=== PATIENT | female | born 1955 ===

== ENCOUNTER 2016-10-18 19:25 | Emergency (ER) | payer MEDICAID ==
--- NOTE | 2016-10-18 20:52 | C.PDOC ---
History Of Present Illness 60 year old female who presents to the ER with son for a complaint of subjective fever, nausea, facial pressure, and body aches over the past 3 hours. As per son, patient was asymptomatic until 3 hours ago; denies vomiting, diarrhea, rash, or recent travel. Time Seen by Provider: 10/18/16 19:47 Chief Complaint (Nursing): Flu-like Symptoms History Per: Patient History/Exam Limitations: no limitations Onset/Duration Of Symptoms: Hrs, Sudden Onset Current Symptoms Are (Timing): Still Present Location Of Pain: Diffuse Myalgias Sick Contacts (Context): None Associated Symptoms: Fever (Subjective), Myalgias, Nausea. denies: Vomiting, Diarrhea Ear Symptoms: Bilateral: None Recent travel outside of the [place]: No Past Medical History Reviewed: Historical Data, Nursing Documentation, Vital Signs Vital Signs: Last Vital Signs Temp 98.1 F 10/18/16 20:59 Pulse 63 10/18/16 20:59 Resp 18 10/18/16 20:59 BP 102/61 10/18/16 20:59 Pulse Ox 98 10/18/16 21:33 - Medical History PMH: HTN, Hypercholesterolemia Surgical History: No Surg Hx Family History: States: Unknown Family Hx - Social History Hx Alcohol Use: No Hx Substance Use: No - Immunization History Hx Tetanus Toxoid Vaccination: No Hx Influenza Vaccination: No Hx Pneumococcal Vaccination: No Review Of Systems Except As Marked, All Systems Reviewed And Found Negative. Constitutional: Positive for: Fever Respiratory: Negative for: Cough Gastrointestinal: Positive for: Nausea. Negative for: Vomiting, Diarrhea Musculoskeletal: Positive for: Other (Body aches) Skin: Negative for: Rash Neurological: Negative for: Headache, Dizziness Physical Exam - Physical Exam Appears: Non-toxic, No Acute Distress Skin: Normal Color, Warm, Dry, No Rash Head: Atraumatic, Normacephalic Eye(s): bilateral: Normal Inspection, PERRL, EOMI Ear(s): Bilateral: Normal Oral Mucosa: Moist Throat: No Erythema, No Exudate Neck: Normal ROM, Supple Chest: Symmetrical, No Tenderness Cardiovascular: Rhythm Regular, No Friction Rub, No Murmur Respiratory: Normal Breath Sounds, No Rales, No Rhonchi, No Wheezing Gastrointestinal/Abdominal: Soft, No Tenderness Back: Normal Inspection, No CVA Tenderness, No Vertebral Tenderness, No Paraspinal Tenderness Extremity: Normal ROM, No Tenderness, No Swelling Neurological/Psych: Oriented x3, Normal Speech, Normal Cognition, Normal Motor Gait: Steady ED Course And Treatment O2 Sat by Pulse Oximetry: 98 (Room air) Pulse Ox Interpretation: Normal Medical Decision Making Medical Decision Making: Toradol and Zofran administered. Physical exam is negative. On reevaluation, patient reports improvement of symptoms, tolerating PO well, ambulatory in the ED with steady gait. Will discharge with instructions to follow up with PMD. Disposition - Disposition Referrals: Jaime Bedoya MD [Medical Doctor] - Disposition: HOME/ ROUTINE Disposition Time: 20:49 Condition: GOOD Additional Instructions: Follow up with the medical doctor within 1-2 days. Return if worsened. Prescriptions: Ibuprofen [Motrin] 600 mg PO TID #21 tab Ondansetron ODT [Zofran ODT] 1 odt PO BID PRN #10 odt PRN Reason: Nausea/Vomiting Instructions: Viral Syndrome (ED) Forms: [facility] (Upper Sorbian) Print Language: LAO - Clinical Impression Clinical Impression: Viral syndrome - Scribe Statement The provider has reviewed the documentation as recorded by the Scriballi Hoyt All medical record entries made by the Scribe were at my direction and personally dictated by me. I have reviewed the chart and agree that the record accurately reflects my personal performance of the history, physical exam, medical decision making, and the department course for this patient. I have also personally directed, reviewed, and agree with the discharge instructions and disposition.
[2016-10-18 20:59] VITALS: BP 102/61; PULSE 63; RESP 18; TEMP 98.1
[2016-10-18 21:23] VITALS: O2SAT 98
== END 2016-10-18 20:59 | disposition home or self-care (01) ==
LOC: C.ER 19:25
DX: B34.9 Viral infection, unspecified (principal)
CPT/HCPCS: 96372; 99283; J1885

== ENCOUNTER 2017-03-22 22:25 | Observation (INO) | payer MEDICAID ==
--- NOTE | 2017-03-22 22:46 | C.PDOC ---
History Of Present Illness 61 y/o F c PMHx HTN, HLD p/w dizziness x 30 minutes. Patient has had this dizziness before but never this severe. Describes as room spinning, worse with head movement, associated with nausea and NBNB vomiting. She reports associated midchest chest pressure, constant with breathlessness. Denies fever, chills, abd pain, diarrhea, numbness, weakness, vision changes. Time Seen by Provider: 03/22/17 22:39 Chief Complaint (Nursing): Chest Pain Past Medical History Vital Signs: Last Vital Signs Temp 98.2 F 03/23/17 00:12 Pulse 57 L 03/22/17 22:58 Resp 54 H 03/23/17 00:12 BP 122/71 03/23/17 00:12 Pulse Ox 20 L 03/23/17 00:12 - Medical History PMH: HTN, Hypercholesterolemia Family History: States: No Known Family Hx - Social History Hx Alcohol Use: No Hx Substance Use: No - Immunization History Hx Tetanus Toxoid Vaccination: No Hx Influenza Vaccination: No Hx Pneumococcal Vaccination: No Review Of Systems Except As Marked, All Systems Reviewed And Found Negative. Constitutional: Negative for: Fever Respiratory: Negative for: Shortness of Breath Physical Exam - Physical Exam Additional Physical Exam Comments: Constitutional: No acute distress. Head: Normocephalic. Atraumatic. Eyes: PERRL. ENT: Moist mucous membranes. Neck: Supple. Cardiovascular: Regular rate. Radial pulse 2+ bilaterally. Chest: No tenderness. Respiratory: Clear to auscultation bilaterally. GI: Soft. Nontender. Nondistended. Back: No CVA tenderness. Musculoskeletal: No tenderness or swelling of extremities. Skin: No rash. Neurologic: Alert, no focal deficit. Positive Alyssa Hallpike maneuver.Moves all extremities. No facial droop. ED Course And Treatment - Laboratory Results Result Diagrams: 03/22/17 22:49 03/22/17 22:49 O2 Sat by Pulse Oximetry: 100 Medical Decision Making Medical Decision Making: EKG Sinus rhythm, 60 bpm, no ST elevations. Nonspecific T wave changes. CXR no acute disease. CT HEAD IMPRESSION: No acute intracranial abnormality Patient with no improvement in vertiginous symptoms. Will keep for intractible vertigo, chest pain rule out. Disposition Discussed With : Artem Hi - Disposition Disposition: HOSPITALIZED Disposition Time: 00:46 Condition: FAIR Forms: [facility] (Syriac) - POA Core Measure Indicators: Chest Pain - Clinical Impression Clinical Impression: Chest pain, Vertigo
[2017-03-22 22:53] LABS: BASO % 0.2 % (0.0-2.0); EOS # 0.2 K/uL (0.0-0.7); EOS % 1.6 % (0.0-4.0); HEMOGLOBIN 13.8 g/dL (11.0-16.0); LYMPH # 1.8 K/uL (1.0-4.3); LYMPH % 15.6 % (20.0-40.0); MEAN CELL VOLUME 88.6 fL (81.0-99.0); MEAN CORPUSCULAR HEMOGLOBIN 30.5 pg (27.0-31.0); MEAN CORPUSCULAR HGB CONC 34.4 g/dL (33.0-37.0); MONO # 0.6 K/uL (0.0-0.8); NEUT % 77.6 % (50.0-75.0); NRBC % 0.1 % (0.0-2.0); RBC 4.53 Mil/uL (3.80-5.20); RED CELL DISTRIBUTION WIDTH 13.6 % (11.5-14.5); WHITE BLOOD COUNT 11.6 K/uL (4.8-10.8)
[2017-03-22 23:05] LABS: ALB/GLOB RATIO 1.2 (1.0-2.1); ALBUMIN 4.1 g/dL (3.5-5.0); ALT/SGPT 33 U/L (9-52); AST/SGOT 30 U/L (14-36); BLOOD UREA NITROGEN 15 mg/dL (7-17); CALCIUM 8.1 mg/dl (8.6-10.4); GFR AFRICAN-AMERICAN > 60; GFR NON-AFRICAN AMERICAN > 60
--- NOTE | 2017-03-23 00:29 | CT ---
EXAM: CT Head Without Intravenous Contrast EXAM DATE/TIME: 03/22/2017 11:33 PM CLINICAL HISTORY: 61 years old, female; Signs and symptoms; Dizziness; Additional info: Intractible vertigo TECHNIQUE: Axial computed tomography images of the head/brain without intravenous contrast. All CT scans at this facility use one or more dose reduction techniques, viz.: automated exposure control; ma/kV adjustment per patient size (including targeted exams where dose is matched to indication; i.e. head); or iterative reconstruction technique. Coronal and sagittal reformatted images were created and reviewed. COMPARISON: There are no prior studies for comparison. FINDINGS: Brain: Ventricles are normal in size and configuration. There is no midline shift. There are no intra-axial or extra-axial mass lesions or areas of hemorrhage. There are no abnormal fluid collections. Martell-white differentiation is maintained. Ventricles: See above. Bones: Cranial vault is intact. Soft tissues: unremarkable Sinuses: There is no acute sinusitis. Ears and mastoids: Middle ears and mastoids are unremarkable Orbits: Orbital contents are unremarkable. IMPRESSION: No acute intracranial abnormality
--- NOTE | 2017-03-23 02:33 | CP.PCM.HP ---
<Eugene Gonsalves - Last Filed: 03/23/17 02:39> History of Present Illness - History of Present Illness History of Present Illness: PGY-1 H&P for Dr. Hi CC: dizziness and chest pain This is a 61 year old female with PMHx HTN, HLD, IGT who presents complaining of non-radiating mid sternal chest pain and dizziness for half an hour prior to arrival to the hospital. Patient states that the pain is constant and described as a pressure. The dizziness is worsened with turning her head. Dizziness is described as the room is spinning. Patient also complains of nausea and vomiting. PMHx: HTN, HLD, IGT PSHx: denies Allergies: PCN Social: denies tobacco, alcohol,drugs PMD: Dr. Bedoya Home meds: Valsartan 80 daily, Metoprolol 50 BID Present on Admission - Present on Admission Any Indicators Present on Admission: No Review of Systems - Constitutional Constitutional: absent: Chills, Fever - EENT Eyes: absent: Change in Vision Ears: absent: Decreased Hearing Nose/Mouth/Throat: absent: Nasal Congestion - Cardiovascular Cardiovascular: Chest Pain - Respiratory Respiratory: absent: Cough, Dyspnea, Wheezing - Gastrointestinal Gastrointestinal: Nausea, Vomiting. absent: Abdominal Pain, Constipation, Diarrhea - Genitourinary Genitourinary: absent: Dysuria - Musculoskeletal Musculoskeletal: absent: Back Pain - Integumentary Integumentary: absent: Rash - Neurological Neurological: Dizziness, Vertigo - Psychiatric Psychiatric: Anxiety - Endocrine Endocrine: absent: Fatigue, Palpitations Past Patient History - Past Social History Smoking Status: Never Smoked - CARDIAC Hx Hypercholesterolemia: Yes Hx Hypertension: Yes - PSYCHIATRIC Hx Substance Use: No - SURGICAL HISTORY Hx Surgeries: No - ANESTHESIA Hx Anesthesia: No Meds Allergies/Adverse Reactions: Allergies Allergy/AdvReac Type Severity Reaction Status Date / Time Penicillins Allergy RASH Verified 10/18/16 19:36 Results - Vital Signs Recent Vital Signs: Last Vital Signs Temp 97.2 F L 03/23/17 02:06 Pulse 62 03/23/17 02:06 Resp 20 03/23/17 02:06 BP 95/63 L 03/23/17 02:06 Pulse Ox 97 03/23/17 02:06 - Labs Result Diagrams: 03/22/17 22:49 03/22/17 22:49 Labs: Laboratory Results - last 24 hr 03/22/17 03/22/17 22:49 22:49 WBC 11.6 H D RBC 4.53 Hgb 13.8 Hct 40.1 MCV 88.6 MCH 30.5 MCHC 34.4 RDW 13.6 Plt Count 209 MPV 9.0 Neut % (Auto) 77.6 H Lymph % (Auto) 15.6 L Doddridge % (Auto) 5.0 Eos % (Auto) 1.6 Baso % (Auto) 0.2 Neut # 9.0 H Lymph # 1.8 Doddridge # 0.6 Eos # 0.2 Baso # 0.0 Sodium 130 L Potassium 3.7 Chloride 96 L Carbon Dioxide 27 Anion Gap 10 BUN 15 Creatinine 0.7 Est GFR ( Amer) > 60 Est GFR (Non-Af Amer) > 60 Random Glucose 132 H Calcium 8.1 L Total Bilirubin 0.6 AST 30 ALT 33 Alkaline Phosphatase 100 Total Creatine Kinase 158 H CK-MB (Mass) 1.80 Troponin I < 0.0120 Total Protein 7.7 Albumin 4.1 Globulin 3.6 Albumin/Globulin Ratio 1.2 Assessment & Plan - Assessment and Plan (Free Text) Plan: Chest pain CARMENZA negative x1 f/u CARMENZA x2 Dizziness likely BPPV Meclizine [address] head unremarkable f/u MRI brain w.o. contrast History of HTN Valsartan NF--Losartan 50 mg PO daily continued home Metoprolol Succinate 50 mg PO BID History of HLD f/u lipid panel History of IGT f/u hemoglobin A1c Prophylactic Measure Heparin 5000U SC Q8 Protonix 40 mg PO daily Heart Healthy diet Zofran 4 mg IV Q6 prn Case DW Dr. Sussy Gonsalves PGY-1 <Artem Hi - Last Filed: 03/23/17 05:32> Results - Vital Signs Recent Vital Signs: Last Vital Signs Temp 99.6 F 03/23/17 02:55 Pulse 56 L 03/23/17 03:40 Resp 20 03/23/17 02:55 BP 148/74 03/23/17 02:55 Pulse Ox 99 03/23/17 03:40 - Labs Result Diagrams: 03/22/17 22:49 03/22/17 22:49 Labs: Laboratory Results - last 24 hr 03/22/17 03/22/17 22:49 22:49 WBC 11.6 H D RBC 4.53 Hgb 13.8 Hct 40.1 MCV 88.6 MCH 30.5 MCHC 34.4 RDW 13.6 Plt Count 209 MPV 9.0 Neut % (Auto) 77.6 H Lymph % (Auto) 15.6 L Doddridge % (Auto) 5.0 Eos % (Auto) 1.6 Baso % (Auto) 0.2 Neut # 9.0 H Lymph # 1.8 Doddridge # 0.6 Eos # 0.2 Baso # 0.0 Sodium 130 L Potassium 3.7 Chloride 96 L Carbon Dioxide 27 Anion Gap 10 BUN 15 Creatinine 0.7 Est GFR ( Amer) > 60 Est GFR (Non-Af Amer) > 60 Random Glucose 132 H Calcium 8.1 L Total Bilirubin 0.6 AST 30 ALT 33 Alkaline Phosphatase 100 Total Creatine Kinase 158 H CK-MB (Mass) 1.80 Troponin I < 0.0120 Total Protein 7.7 Albumin 4.1 Globulin 3.6 Albumin/Globulin Ratio 1.2 Assessment & Plan - Date & Time Date: 03/23/17 (I have seen and examined the patient. I agree with the findings and plan of care as documented by Dr. Gonsalves. Patient with chest pain. ROMIx3 with EKG. Aspirin and Statin. Also with intractable Nausea and vomiting. Dizziness. Meclizine given without any relief. CT head negative. Check MRI brain in AM. Monitor for acute changes.) Time: 05:30 Attending/Attestation - Attestation I have personally seen and examined this patient.: Yes I have fully participated in the care of the patient.: Yes I have reviewed all pertinent clinical information: Yes
[2017-03-23 07:47] LABS: BASO % 0.4 % (0.0-2.0); EOS # 0.2 K/uL (0.0-0.7); EOS % 1.8 % (0.0-4.0); HEMOGLOBIN 13.5 g/dL (11.0-16.0); LYMPH # 2.4 K/uL (1.0-4.3); LYMPH % 27.1 % (20.0-40.0); MEAN CELL VOLUME 88.6 fL (81.0-99.0); MEAN CORPUSCULAR HEMOGLOBIN 30.5 pg (27.0-31.0); MEAN CORPUSCULAR HGB CONC 34.4 g/dL (33.0-37.0); MEAN PLATELET VOLUME 8.9 fL (7.2-11.7); MONO # 0.6 K/uL (0.0-0.8); NEUT # 5.5 K/uL (1.8-7.0); NEUT % 63.7 % (50.0-75.0); NRBC % 0.1 % (0.0-2.0); RBC 4.44 Mil/uL (3.80-5.20); RED CELL DISTRIBUTION WIDTH 13.7 % (11.5-14.5); WHITE BLOOD COUNT 8.7 K/uL (4.8-10.8)
[2017-03-23 08:05] LABS: CK-MB 1.53 ng/mL (0.0-3.38)
[2017-03-23 08:07] LABS: LDL CHOLESTEROL 156 mg/dL (0-129)
[2017-03-23 08:16] LABS: ALB/GLOB RATIO 1.1 (1.0-2.1); ALBUMIN 3.5 g/dL (3.5-5.0); ALT/SGPT 25 U/L (9-52); AST/SGOT 29 U/L (14-36); BLOOD UREA NITROGEN 12 mg/dL (7-17); CALCIUM 7.6 mg/dl (8.6-10.4); GFR AFRICAN-AMERICAN > 60; GFR NON-AFRICAN AMERICAN > 60; HDL CHOLESTEROL 42 mg/dL (30-70)
--- NOTE | 2017-03-23 08:37 | RAD ---
HISTORY: cp COMPARISON: Comparison is made with 10/29/2015 FINDINGS: LUNGS: No evidence of new infiltrate or consolidation in the lungs. PLEURA: No significant pleural effusion identified, no pneumothorax apparent. CARDIOVASCULAR: Normal. OSSEOUS STRUCTURES: No significant abnormalities. VISUALIZED UPPER ABDOMEN: Normal. OTHER FINDINGS: None. IMPRESSION: No active disease.
[2017-03-23] MEDS: Pantoprazole 40 mg EC Tab PO SCH (09:18)
[2017-03-23] MEDS ORDERED: Metoprolol Succinate 50 mg XL Tab PO SCH (10:00)
--- NOTE | 2017-03-23 10:16 | CP.PCM.PN ---
<Ligia Mendiola - Last Filed: 03/23/17 15:54> Subjective - Date & Time of Evaluation Date of Evaluation: 03/23/17 Time of Evaluation: 10:16 - Subjective Subjective: Medicine Progress Note: Hospitalist Service Patient seen and examined at bedside. Per nursing no acute events overnight. Patient states that chest pain has improved. Also states that she feels a little dizzy. Attempted to walk the patient in the hallway and she began to feel dizzy again. Tolerating diet. denies N/V. Denies headaches, cp, palpitations, sob, abdominal pain, urinary symptoms, changes in bowel habits. Objective - Vital Signs/Intake and Output Vital Signs (last 24 hours): Temp Pulse Resp BP Pulse Ox 97.7 F 58 L 20 130/85 99 03/23/17 07:30 03/23/17 07:30 03/23/17 07:30 03/23/17 09:20 03/23/17 03:40 Intake and Output: 03/23/17 03/23/17 06:59 18:59 Intake Total 100 Balance 100 - Medications Medications: Current Medications Aspirin (Aspirin Chewable) 81 mg PO DAILY [facility] Last Admin: 03/23/17 09:19 Dose: 81 mg Heparin Sodium (Porcine) (Heparin) 5,000 units SC Q8 [facility] Last Admin: 03/23/17 05:45 Dose: 5,000 units Losartan Potassium (Cozaar) 50 mg PO DAILY [facility] Last Admin: 03/23/17 09:19 Dose: 50 mg Meclizine HCl (Antivert) 25 mg PO Q6H [facility] Last Admin: 03/23/17 05:45 Dose: 25 mg Metoprolol Tartrate (Lopressor) 50 mg PO BID [facility] Last Admin: 03/23/17 09:19 Dose: 50 mg Pantoprazole Sodium (Protonix Ec Tab) 40 mg PO DAILY [facility] Last Admin: 03/23/17 09:18 Dose: 40 mg Pneumococcal Polyvalent Vaccine (Pneumovax 23 Vaccine) 0.5 ml IM .ONCE ONE Stop: 03/25/17 10:01 Rosuvastatin Calcium (Crestor) 5 mg PO HS [facility] - Labs Labs: 03/23/17 07:17 03/23/17 07:17 - Constitutional Appears: Well, No Acute Distress - Head Exam Head Exam: ATRAUMATIC, NORMAL INSPECTION - Eye Exam Eye Exam: EOMI, Normal appearance - ENT Exam ENT Exam: Mucous Membranes Moist - Neck Exam Neck Exam: Full ROM - Respiratory Exam Respiratory Exam: Clear to Ausculation Bilateral, NORMAL BREATHING PATTERN. absent: Rales, Rhonchi, Wheezes - Cardiovascular Exam Cardiovascular Exam: REGULAR RHYTHM, +S1, +S2 - GI/Abdominal Exam GI & Abdominal Exam: Soft, Normal Bowel Sounds. absent: Firm, Guarding, Rigid, Tenderness - Extremities Exam Extremities Exam: Normal Inspection. absent: Calf Tenderness - Back Exam Back Exam: NORMAL INSPECTION - Neurological Exam Neurological Exam: Alert, Awake, CN II-XII Intact, Oriented x3 - Psychiatric Exam Psychiatric exam: Normal Affect, Normal Mood - Skin Skin Exam: Dry, Normal Color, Warm Assessment and Plan - Assessment and Plan (Free Text) Assessment: Chest pain, r/o ACS -Stable, afebrile -No acute events on telemetry -CXR showed no active diseases -CARMENZA negative x 2 -Echo ordered, will f/u Hx of Hypothyroidism -Patient unsure which medication she is taking -Will verify medications with her son when he comes this afternoon -F/U TSH level Dizziness -Likely BPPV -Meclizine 25 mg PO Q6H -CT head negative for intracranial pathology -F/U MRI brain w.o. contrast -PT eval ordered History of HTN -Valsartan NF--Losartan 50 mg PO daily -Continued home Metoprolol Succinate 50 mg PO BID History of HLD -Lipid panel showing elevated cholesterol 219 and LDL 156 -Started on Crestor 5mg PO HS History of IGT -f/u hemoglobin A1c Prophylactic Measure -Heparin 5000U SC Q8 -Protonix 40 mg PO daily <Shorty Witt H - Last Filed: 03/23/17 16:01> Objective - Vital Signs/Intake and Output Vital Signs (last 24 hours): Temp Pulse Resp BP Pulse Ox 97.7 F 58 L 20 130/85 99 03/23/17 07:30 03/23/17 07:30 03/23/17 07:30 03/23/17 09:20 03/23/17 15:53 Intake and Output: 03/23/17 03/23/17 06:59 18:59 Intake Total 100 480 Balance 100 480 - Medications Medications: Current Medications Aspirin (Aspirin Chewable) 81 mg PO DAILY [facility] Last Admin: 03/23/17 09:19 Dose: 81 mg Heparin Sodium (Porcine) (Heparin) 5,000 units SC Q8 [facility] Last Admin: 03/23/17 13:34 Dose: 5,000 units Losartan Potassium (Cozaar) 50 mg PO DAILY [facility] Last Admin: 03/23/17 09:19 Dose: 50 mg Meclizine HCl (Antivert) 25 mg PO Q6H [facility] Last Admin: 03/23/17 12:39 Dose: 25 mg Metoprolol Tartrate (Lopressor) 50 mg PO BID [facility] Last Admin: 03/23/17 09:19 Dose: 50 mg Pantoprazole Sodium (Protonix Ec Tab) 40 mg PO DAILY [facility] Last Admin: 03/23/17 09:18 Dose: 40 mg Pneumococcal Polyvalent Vaccine (Pneumovax 23 Vaccine) 0.5 ml IM .ONCE ONE Stop: 03/25/17 10:01 Rosuvastatin Calcium (Crestor) 5 mg PO HS [facility] - Labs Labs: 03/23/17 07:17 03/23/17 07:17 Attending/Attestation - Attestation I have personally seen and examined this patient.: Yes I have fully participated in the care of the patient.: Yes I have reviewed all pertinent clinical information, including history, physical exam and plan: Yes Notes (Text): 03/23/17 15:59 Medical Attendinding: Patient was seen and examined by me Agree with the above note by the resident The patient was not in any acute distress when we saw her The chest pain was not present However she did point out that there is still some lingering dizziness. She is meclizine PO. She reports the dizziness is less We did try to stand her up and walk her. She was able to walk into the hallway but we turned around since she was unsteady Pending MRI at this time thank you Shorty Witt
[2017-03-23 12:13] LABS: CK-MB 1.18 ng/mL (0.0-3.38)
[2017-03-24] MEDS: Levothyroxine 25 MCG TAB PO SCH (05:56)
[2017-03-24 06:49] LABS: BASO % 0.5 % (0.0-2.0); EOS # 0.3 K/uL (0.0-0.7); EOS % 4.8 % (0.0-4.0); HEMOGLOBIN 13.3 g/dL (11.0-16.0); LYMPH # 2.7 K/uL (1.0-4.3); LYMPH % 45.3 % (20.0-40.0); MEAN CELL VOLUME 88.2 fL (81.0-99.0); MEAN CORPUSCULAR HEMOGLOBIN 30.5 pg (27.0-31.0); MEAN CORPUSCULAR HGB CONC 34.5 g/dL (33.0-37.0); MEAN PLATELET VOLUME 8.9 fL (7.2-11.7); MONO # 0.6 K/uL (0.0-0.8); MONO % 9.3 % (0.0-10.0); NEUT # 2.4 K/uL (1.8-7.0); NEUT % 40.1 % (50.0-75.0); RBC 4.35 Mil/uL (3.80-5.20); RED CELL DISTRIBUTION WIDTH 13.3 % (11.5-14.5)
[2017-03-24 07:00] LABS: ALB/GLOB RATIO 1.1 (1.0-2.1); ALBUMIN 3.4 g/dL (3.5-5.0); ALT/SGPT 32 U/L (9-52); AST/SGOT 26 U/L (14-36); BLOOD UREA NITROGEN 17 mg/dL (7-17); CALCIUM 7.7 mg/dl (8.6-10.4); GFR AFRICAN-AMERICAN > 60; GFR NON-AFRICAN AMERICAN > 60; HDL CHOLESTEROL 34 mg/dL (30-70)
[2017-03-24 07:05] LABS: LDL CHOLESTEROL 142 mg/dL (0-129)
[2017-03-24] MEDS: Pantoprazole 40 mg EC Tab PO SCH (09:40)
[2017-03-24 12:30] LABS: SQUAMOUS EPITHIAL 1 /hpf (0-5); URINE BILIRUBIN NEGATIVE (NEGATIVE); URINE BLOOD NEGATIVE (NEGATIVE); URINE CLARITY Clear (Clear); URINE COLOR Yellow (YELLOW); URINE GLUCOSE (UA) NORMAL (Normal); URINE LEUKOCYTE ESTERASE NEG Leu/uL (Negative); URINE NITRATE NEGATIVE (NEGATIVE); URINE PROTEIN NEGATIVE (NEGATIVE); URINE UROBILINOGEN NORMAL mg/dL (0.2-1.0)
--- NOTE | 2017-03-24 13:31 | CP.PCM.PN ---
<ShanealliOumoufina - Last Filed: 03/24/17 13:27> Subjective - Date & Time of Evaluation Date of Evaluation: 03/24/17 Time of Evaluation: 13:27 - Subjective Subjective: Patient seen and examined at bedside. No overnight events reported. Patient denies any dizzines, SOB, or chest pain. She does complain of some lower back pain and increased urinary frequency with foul smelling urine. She also complains of b/l lower quadrant abdominal pain. She denies any dysuria, hematuria, or discharge. Objective - Vital Signs/Intake and Output Vital Signs (last 24 hours): Temp Pulse Resp BP Pulse Ox 97.8 F 67 20 100/64 96 03/24/17 07:30 03/24/17 09:45 03/24/17 07:30 03/24/17 09:45 03/24/17 07:30 Intake and Output: 03/24/17 03/24/17 06:59 18:59 Intake Total 240 Balance 240 - Medications Medications: Current Medications Acetaminophen (Tylenol 325mg Tab) 650 mg PO Q6 PRN PRN Reason: Fever and Pain Aspirin (Aspirin Chewable) 81 mg PO DAILY [facility] Last Admin: 03/24/17 09:40 Dose: 81 mg Docusate Sodium (Colace) 100 mg PO BID [facility] Heparin Sodium (Porcine) (Heparin) 5,000 units SC Q8 [facility] Last Admin: 03/24/17 05:56 Dose: 5,000 units Levothyroxine Sodium (Synthroid) 25 mcg PO DAILY@0630 [facility] Last Admin: 03/24/17 05:56 Dose: 25 mcg Losartan Potassium (Cozaar) 50 mg PO DAILY [facility] Last Admin: 03/24/17 09:40 Dose: Not Given Meclizine HCl (Antivert) 25 mg PO Q6H [facility] Last Admin: 03/24/17 12:30 Dose: 25 mg Metoprolol Tartrate (Lopressor) 50 mg PO BID [facility] Last Admin: 03/24/17 09:41 Dose: Not Given Pantoprazole Sodium (Protonix Ec Tab) 40 mg PO DAILY [facility] Last Admin: 03/24/17 09:40 Dose: 40 mg Pneumococcal Polyvalent Vaccine (Pneumovax 23 Vaccine) 0.5 ml IM .ONCE ONE Stop: 03/25/17 10:01 Rosuvastatin Calcium (Crestor) 5 mg PO HS [facility] Last Admin: 03/23/17 21:55 Dose: 5 mg - Labs Labs: 03/24/17 06:32 03/24/17 06:32 APTT 34 SECONDS (21-34) 03/24/17 06:32 - Additional Findings Additional findings: - Constitutional Appears: Well, No Acute Distress - Head Exam Head Exam: ATRAUMATIC, NORMAL INSPECTION - Eye Exam Eye Exam: EOMI, Normal appearance - ENT Exam ENT Exam: Mucous Membranes Moist - Neck Exam Neck Exam: Full ROM - Respiratory Exam Respiratory Exam: Clear to Ausculation Bilateral, NORMAL BREATHING PATTERN. absent: Rales, Rhonchi, Wheezes - Cardiovascular Exam Cardiovascular Exam: REGULAR RHYTHM, +S1, +S2 - GI/Abdominal Exam GI & Abdominal Exam: Soft, Normal Bowel Sounds, mild abdominal tenderness (LLQ, RLQ). absent: Firm, Guarding, Rigid, - Extremities Exam Extremities Exam: Normal Inspection. absent: Calf Tenderness - Back Exam Back Exam: NORMAL INSPECTION - Neurological Exam Neurological Exam: Alert, Awake, CN II-XII Intact, Oriented x3 - Psychiatric Exam Psychiatric exam: Normal Affect, Normal Mood - Skin Skin Exam: Dry, Normal Color, Warm Assessment and Plan - Assessment and Plan (Free Text) Assessment: 61 year old female with PMHx HTN, HLD, and impaired glucose tolerance admitted for evaluation and treatment of chest pain and dizziness Plan: Chest pain (Resolved) CARMENZA negative x3 ECHO ordered yesterday. Dizziness (Resolved) likely BPPV Meclizine [address] head (03/22) unremarkable Brain MRI (03/24/17): Bilateral scattered small foci of abnormal T2/FLAIR signal intensity in the periventricular and subcortical white matter. Given patient age, findings likely represent small vessel ischemic disease however, additional differential considerations include infectious/inflammatory process, demyelinating disease, or migraines. History of HTN Valsartan NF--Losartan 50 mg PO daily continued home Metoprolol Succinate 50 mg PO BID History of HLD (03/24/17) - TG - 209, LDL - 142, HDL 44 Cont. Crestor 5 HS History of IGT 5.9 Prophylactic Measure Heparin 5000U SC Q8 Protonix 40 mg PO daily Heart Healthy diet Zofran 4 mg IV Q6 prn Dispo: Will likely go home tomorrow if ECHO is normal. Patient seen and discussed with Dr. Gonzalez. Tati Estrada - PGY1 <Marce Gonzalez V - Last Filed: 03/24/17 19:10> Objective - Vital Signs/Intake and Output Vital Signs (last 24 hours): Temp Pulse Resp BP Pulse Ox 98.3 F 68 18 118/76 96 03/24/17 15:00 03/24/17 18:06 03/24/17 15:00 03/24/17 18:06 03/24/17 15:00 Intake and Output: 03/24/17 03/25/17 18:59 06:59 Intake Total 300 Balance 300 - Medications Medications: Current Medications Acetaminophen (Tylenol 325mg Tab) 650 mg PO Q6 PRN PRN Reason: Fever and Pain Aspirin (Aspirin Chewable) 81 mg PO DAILY [facility] Last Admin: 03/24/17 09:40 Dose: 81 mg Docusate Sodium (Colace) 100 mg PO BID [facility] Last Admin: 03/24/17 18:05 Dose: 100 mg Heparin Sodium (Porcine) (Heparin) 5,000 units SC Q8 [facility] Last Admin: 03/24/17 13:58 Dose: 5,000 units Levothyroxine Sodium (Synthroid) 25 mcg PO DAILY@0630 [facility] Last Admin: 03/24/17 05:56 Dose: 25 mcg Losartan Potassium (Cozaar) 50 mg PO DAILY [facility] Last Admin: 03/24/17 09:40 Dose: Not Given Meclizine HCl (Antivert) 25 mg PO Q6H [facility] Last Admin: 03/24/17 12:30 Dose: 25 mg Metoprolol Tartrate (Lopressor) 50 mg PO BID [facility] Last Admin: 03/24/17 18:05 Dose: 50 mg Pantoprazole Sodium (Protonix Ec Tab) 40 mg PO DAILY [facility] Last Admin: 03/24/17 09:40 Dose: 40 mg Pneumococcal Polyvalent Vaccine (Pneumovax 23 Vaccine) 0.5 ml IM .ONCE ONE Stop: 03/25/17 10:01 Rosuvastatin Calcium (Crestor) 5 mg PO [facility] Last Admin: 03/23/17 21:55 Dose: 5 mg - Labs Labs: 03/24/17 06:32 03/24/17 06:32 APTT 34 SECONDS (21-34) 03/24/17 06:32 Attending/Attestation - Attestation I have personally seen and examined this patient.: Yes I have fully participated in the care of the patient.: Yes I have reviewed all pertinent clinical information, including history, physical exam and plan: Yes Notes (Text): Patient seen, examined, case discussed with medical aide. Patient seen at bedside this morning. Patient denies acute complaints except for constipation which she reports last bowel movement was about 2 days ago. Patient denies any from episodes of dizziness. Patient reports was able to go to and from the bathroom with running complaints of dizziness. Patient cranial nerves are intact, strength is 5 out of 5 upper and lower extremity, Babinski negative bilaterally negative straight leg test bilaterally, heel to candelario coordination intact. Patient does report urinary frequency for about 3 days with associated small and dysuria patient ordered for urine studies today. Patient is pending echocardiogram in terms of workup for chest pain. Patient also pending brain MRI today which was completed. Brain MRI noting for bilateral scattered small foci abnormal T2 flare signal intensity in the periventricular and subcortical white matter. Assessment/Plan 1) Chest pain (Resolved) * CARMENZA negative x3 * Pending ECHO ordered yesterday. 2) Dizziness * Meclizine 25 mg PO Q6H * CT head (03/22) unremarkable * Brain MRI (03/24/17): Bilateral scattered small foci of abnormal T2/FLAIR signal intensity in the periventricular and subcortical white matter. Given patient age, findings likely represent small vessel ischemic disease however, additional differential considerations include infectious/inflammatory process, demyelinating disease, or migraines. 3) History of HTN * Valsartan NF--Losartan 50 mg PO daily * continued home Metoprolol Succinate 50 mg PO BID 4) History of HLD * (03/24/17) - TG - 209, LDL - 142, HDL 44 * Continue Crestor 5mg PO HS 5) History of Impaired glucose tolerance * [id number]: 5.9 * Will need repeat in one year to avoid overt diabetes 6) Urinary Frequency * UA, Urine culture 7) Prophylactic Measure * Heparin 5000U SC Q8 * Protonix 40 mg PO daily * Heart Healthy diet * Zofran 4 mg IV Q6 prn * Tolerated PT; patient is not a candidate. Dispo: Patient completed Brain MRI and is awaiting echocardiogram.
--- NOTE | 2017-03-24 13:31 | MRI ---
PROCEDURE: MRI BRAIN WITHOUT CONTRAST HISTORY: vertigo COMPARISON: CT head 03/22/2017 TECHNIQUE: Multiplanar, multisequence MR images of the brain were obtained without intravenous contrast enhancement. FINDINGS: HEMORRHAGE: None DWI: No evidence of an acute or early subacute infarction. BRAIN PARENCHYMA: No mass effect or edema. Mild sulcal and ventricular prominence, consistent mild age related volume loss. Bilateral scattered small foci of abnormal T2/FLAIR signal intensity in the periventricular and subcortical white matter. Given patient age, findings likely represent small vessel ischemic disease however, additional differential considerations include infectious/inflammatory process, demyelinating disease, or migraines. VENTRICLES: See above CRANIUM: Calvarium is intact. PARANASAL SINUSES/MASTOIDS: Mild mucosal thickening bilateral ethmoid sinuses. Remainder of the visualized sinuses and mastoid air cells are clear. VASCULAR SYSTEM: Skull base flow voids intact. OTHER FINDINGS: None. IMPRESSION: Bilateral scattered small foci of abnormal T2/FLAIR signal intensity in the periventricular and subcortical white matter. Given patient age, findings likely represent small vessel ischemic disease however, additional differential considerations include infectious/inflammatory process, demyelinating disease, or migraines.
[2017-03-25] MEDS: Levothyroxine 25 MCG TAB PO SCH (06:08)
[2017-03-25 08:11] VITALS: RESP 18; TEMP 98.2
[2017-03-25 08:32] LABS: BASO % 0.4 % (0.0-2.0); EOS # 0.3 K/uL (0.0-0.7); EOS % 5.3 % (0.0-4.0); HEMOGLOBIN 13.9 g/dL (11.0-16.0); LYMPH # 2.6 K/uL (1.0-4.3); LYMPH % 39.2 % (20.0-40.0); MEAN CELL VOLUME 88.3 fL (81.0-99.0); MEAN CORPUSCULAR HEMOGLOBIN 29.6 pg (27.0-31.0); MEAN CORPUSCULAR HGB CONC 33.5 g/dL (33.0-37.0); MEAN PLATELET VOLUME 8.8 fL (7.2-11.7); MONO # 0.6 K/uL (0.0-0.8); MONO % 8.4 % (0.0-10.0); NEUT # 3.1 K/uL (1.8-7.0); NEUT % 46.7 % (50.0-75.0); NRBC % 0.1 % (0.0-2.0); RBC 4.71 Mil/uL (3.80-5.20); RED CELL DISTRIBUTION WIDTH 13.5 % (11.5-14.5); WHITE BLOOD COUNT 6.6 K/uL (4.8-10.8)
[2017-03-25 08:49] LABS: ALB/GLOB RATIO 1.2 (1.0-2.1); ALBUMIN 3.7 g/dL (3.5-5.0); ALT/SGPT 39 U/L (9-52); AST/SGOT 28 U/L (14-36); BLOOD UREA NITROGEN 18 mg/dL (7-17); CALCIUM 7.6 mg/dl (8.6-10.4); GFR AFRICAN-AMERICAN > 60; GFR NON-AFRICAN AMERICAN > 60; HDL CHOLESTEROL 35 mg/dL (30-70)
[2017-03-25 09:00] LABS: LDL CHOLESTEROL 124 mg/dL (0-129)
[2017-03-25] MEDS ORDERED: Pneumococcal 23-Valent Vaccine IM ONE ×2 (10:00→14:00)
[2017-03-25] MEDS: Pantoprazole 40 mg EC Tab PO SCH (11:00)
--- NOTE | 2017-03-25 11:56 | CP.PCM.CON ---
History of Present Illness - History of Present Illness History of Present Illness: Neurology consult note for Dr. Pak: Consult was placed for dizziness 61 year old female was admitted on 03/23 for chest pain associated with dizziness and head ache. Patient reports that she is not dizzy currently but states that she only gets dizzy when she has headaches. She reports having headaches about 2 -3 days a week for the past year that are located on the top of her head down to her eyes with a lot of pain between her eyes and in her forehead. She states that they last a few hours and she was told to take tylenol for these headaches. She has associated nausea and photophobia with these headaches. When she gets dizzy she feels like the the ceiling is falling on her and that the room in spinning. No change in head position makes the dizziness worse or better. Denies episodes of vomiting. She denies gait problems. Past Patient History - Past Medical History & Family History Past Medical History?: Yes - Past Social History Smoking Status: Never Smoked - CARDIAC Hx Hypercholesterolemia: Yes Hx Hypertension: Yes - PULMONARY Hx Respiratory Disorders: No - NEUROLOGICAL Hx Neurological Disorder: No - HEENT Hx HEENT Problems: No - RENAL Hx Chronic Kidney Disease: No - ENDOCRINE/METABOLIC Hx Endocrine Disorders: No - HEMATOLOGICAL/ONCOLOGICAL Hx Blood Disorders: No - INTEGUMENTARY Hx Dermatological Problems: No - MUSCULOSKELETAL/RHEUMATOLOGICAL Hx Musculoskeletal Disorders: No Hx Falls: No - GASTROINTESTINAL Hx Gastrointestinal Disorders: No - GENITOURINARY/GYNECOLOGICAL Hx Genitourinary Disorders: No - PSYCHIATRIC Hx Psychophysiologic Disorder: No Hx Substance Use: No - SURGICAL HISTORY Hx Surgeries: No - ANESTHESIA Hx Anesthesia: No Meds Allergies/Adverse Reactions: Allergies Allergy/AdvReac Type Severity Reaction Status Date / Time Penicillins Allergy RASH Verified 10/18/16 19:36 - Medications Medications: Current Medications Acetaminophen (Tylenol 325mg Tab) 650 mg PO Q6 PRN PRN Reason: Fever and Pain Aspirin (Aspirin Chewable) 81 mg PO DAILY [facility] Last Admin: 03/25/17 11:00 Dose: 81 mg Docusate Sodium (Colace) 100 mg PO BID [facility] Last Admin: 03/25/17 11:00 Dose: 100 mg Heparin Sodium (Porcine) (Heparin) 5,000 units SC Q8 [facility] Last Admin: 03/25/17 06:08 Dose: 5,000 units Levothyroxine Sodium (Synthroid) 25 mcg PO DAILY@0630 [facility] Last Admin: 03/25/17 06:08 Dose: 25 mcg Losartan Potassium (Cozaar) 50 mg PO DAILY [facility] Last Admin: 03/25/17 11:00 Dose: 50 mg Meclizine HCl (Antivert) 25 mg PO Q6H [facility] Last Admin: 03/25/17 06:08 Dose: 25 mg Metoprolol Tartrate (Lopressor) 50 mg PO BID [facility] Last Admin: 03/25/17 11:13 Dose: Not Given Pantoprazole Sodium (Protonix Ec Tab) 40 mg PO DAILY [facility] Last Admin: 03/25/17 11:00 Dose: 40 mg Rosuvastatin Calcium (Crestor) 20 mg PO [facility] Physical Exam - Constitutional Appears: Non-toxic, No Acute Distress - Head Exam Head Exam: ATRAUMATIC, NORMAL INSPECTION - Eye Exam Eye Exam: EOMI, Normal appearance, PERRL. absent: Nystagmus Pupil Exam: NORMAL ACCOMODATION, PERRL - ENT Exam ENT Exam: Mucous Membranes Moist - Neck Exam Neck exam: Positive for: Full Rom - Extremities Exam Extremities exam: Positive for: normal inspection. Negative for: calf tenderness - Back Exam Back exam: NORMAL INSPECTION. absent: CVA tenderness (L), CVA tenderness (R), paraspinal tenderness - Neurological Exam Neurological exam: Alert, CN II-XII Intact, Normal Gait, Oriented x3, Reflexes Normal - Expanded Neurological Exam Expanded Patient oriented to: person, place, time Speech: Fluid Speech Cranial nerves: EOM's Intact: Normal, Facial Palsey w/Forehead Movement: Normal , Facial Palsey w/o Forehead Movement: Normal, Facial Sensation: Normal, Nystagmus: Normal, Tongue Deviation: Normal Ataxia: No Cerebellar Function: Finger to Nose: Normal, Heel to Zelaya: Normal, Romberg: Normal Upper motor neuron: Jakob Neglect: Normal, Pronator Drift: Normal Neuro motor strength exam: Left Upper Extremity: 5, Right Upper Extremity: 5, Left Lower Extremity: 5, Right Lower Extremity: 5 DTR: Achilles Tendon Left: 2+, Achilles Tendon Right: 2+, Bicep Left: 2+, Bicep Right: 2+, Brachioradialis Left: 2+, Brachioradialis Right: 2+, Patellar Left: 2 +, Patellar Right: 2+, Tricep Left: 2+, Tricep Right: 2+ Coma Scale Motor Response: OBEYS COMMANDS Coma Scale Verbal: Oriented - Psychiatric Exam Psychiatric exam: Normal Affect, Normal Mood Results - Vital Signs Recent Vital Signs: Last Vital Signs Temp 98.2 F 03/25/17 07:25 Pulse 56 L 03/25/17 11:00 Resp 18 03/25/17 07:25 BP 117/56 L 03/25/17 11:00 Pulse Ox 97 03/25/17 07:25 - Labs Result Diagrams: 03/25/17 08:17 03/25/17 08:17 Labs: Laboratory Results - last 24 hr 03/24/17 03/25/17 03/25/17 12:06 08:17 08:17 WBC 6.6 RBC 4.71 Hgb 13.9 Hct 41.5 MCV 88.3 MCH 29.6 MCHC 33.5 RDW 13.5 Plt Count 208 MPV 8.8 Neut % (Auto) 46.7 L Lymph % (Auto) 39.2 Weber % (Auto) 8.4 Eos % (Auto) 5.3 H Baso % (Auto) 0.4 Neut # 3.1 Lymph # 2.6 Weber # 0.6 Eos # 0.3 Baso # 0.0 Sodium 135 Potassium 4.4 Chloride 99 Carbon Dioxide 30 Anion Gap 11 BUN 18 H Creatinine 0.9 Est GFR ( Amer) > 60 Est GFR (Non-Af Amer) > 60 Random Glucose 88 Calcium 7.6 L Total Bilirubin 0.5 AST 28 ALT 39 Alkaline Phosphatase 76 Total Protein 6.8 Albumin 3.7 Globulin 3.1 Albumin/Globulin Ratio 1.2 Triglycerides 137 D Cholesterol 196 LDL Cholesterol Direct 124 HDL Cholesterol 35 Urine Color Yellow Urine Clarity Clear Urine pH 5.0 Ur Specific Crescent 1.013 Urine Protein Negative Urine Glucose (UA) Normal Urine Ketones Negative Urine Blood Negative Urine Nitrate Negative Urine Bilirubin Negative Urine Urobilinogen Normal Ur Leukocyte Esterase Neg Urine WBC (Auto) 1 Ur Squamous Epith Cells 1 Assessment & Plan - Assessment and Plan (Free Text) Assessment: Vestibular Migraines -Patient to take MagOx 400mg PO BID for prophylaxis. -Patient to take NSAIDs during migrane onset. -Head/Neck MRA reviewed -Brain MRI 03/24: Bilaterll scattered small foci of abnormal T2/flair signal intensity in the periventricular and subcortical white matter. Findings likely small vessel ischemic disease however differental consideratoins inclue infectous/inflammatory process, demyelinating disease or migranes. -Patient to follow up outpatient with Dr. Pak. She was given his card/ information Risk factors: hypertension, hyperlipidemia, prediabetic
--- NOTE | 2017-03-25 13:19 | MRI ---
PROCEDURE: Magnetic Resonance Angiography Brain HISTORY: Headache, dizziness COMPARISON: None available. TECHNIQUE: 3D time of flight MR angiography of the intracranial arteries was performed. Rotating maximum intensity projection images were generated. FINDINGS: INTERNAL CAROTID ARTERIES: Normal flow related signal. The skull base, petrous, cavernous and supraclinoid segments are bilaterally widely patient. ANTERIOR CEREBRAL ARTERIES: Normal flow related signal. A1 and A2 segments are widely patent. Smaller distal branches unremarkable, as visualized. MIDDLE CEREBRAL ARTERIES: Normal flow related signal. M1 and M2 segments are widely patent. Perisylvian branches grossly symmetric. POSTERIOR CIRCULATION: Basilar Artery: Normal in caliber. Distal Vertebral Arteries: Normal in caliber. Posterior Cerebral Arteries: Normal in caliber. There is origin of the right posterior cerebral artery, an anatomic variant. Posterior Inferior Cerebellar Arteries: Normal in caliber. ANEURYSM/ VASCULAR MALFORMATIONS: None. OTHER FINDINGS: None. IMPRESSION: Normal MR angiography of the brain.
--- NOTE | 2017-03-25 13:21 | MRI ---
PROCEDURE: MR Angiography of the neck without contrast HISTORY: headache, dizziness COMPARISON: None available. TECHNIQUE: 3D [id number] angiography of the neck was performed. Rotating maximum intensity projection images of the cervical carotid and vertebral arteries were generated. The origins of the common carotid arteries were not visualized, which is a limitation inherent to the non-contrast time of flight technique. FINDINGS: RIGHT CAROTID ARTERIES: Common Carotid Artery: Normal. Carotid Bifurcation: Normal. Internal Carotid Artery:Normal. External Carotid Artery (proximal branches): Normal. LEFT CAROTID ARTERIES: Common Carotid Artery: Normal. Carotid Bifurcation: Normal. Internal Carotid Artery:Normal. External Carotid Artery (proximal branches): Normal. VERTEBRAL ARTERIES: Right Vertebral Artery: Normal. The right vertebral artery is dominant, an anatomic variant. Left Vertebral Artery: Normal. OTHER FINDINGS: None. IMPRESSION: Normal MR Angiography of the neck.
[2017-03-25] MEDS ORDERED: Influenza Vaccine 60 mcg/0.5 mL SYR (4YR UP) IM ONE (14:00)
--- NOTE | 2017-03-25 14:57 | CP.PCM.DIS ---
<Tati Estrada - Last Filed: 03/25/17 17:28> Provider - Provider Date of Admission: 03/23/17 00:43 Attending physician: Marce Gonzalez DO Consults: Neurology - Mellisa Time Spent in preparation of Discharge (in minutes): 45 Diagnosis - Discharge Diagnosis (1) Complicated migraine Status: Resolved (2) Chest pain Status: Resolved Hospital Course - Lab Results Lab Results: Micro Results 03/24/17 12:54 Urine,Clean Catch Urine Culture - Final No Growth (<1,000 CFU/ML) Most Recent Lab Values WBC 6.6 K/uL (4.8-10.8) 03/25/17 08:17 RBC 4.71 Mil/uL (3.80-5.20) 03/25/17 08:17 Hgb 13.9 g/dL (11.0-16.0) 03/25/17 08:17 Hct 41.5 % (34.0-47.0) 03/25/17 08:17 MCV 88.3 fL (81.0-99.0) 03/25/17 08:17 MCH 29.6 pg (27.0-31.0) 03/25/17 08:17 MCHC 33.5 g/dL (33.0-37.0) 03/25/17 08:17 RDW 13.5 % (11.5-14.5) 03/25/17 08:17 Plt Count 208 K/uL (130-400) 03/25/17 08:17 MPV 8.8 fL (7.2-11.7) 03/25/17 08:17 Neut % (Auto) 46.7 % (50.0-75.0) L 03/25/17 08:17 Lymph % (Auto) 39.2 % (20.0-40.0) 03/25/17 08:17 [place] % (Auto) 8.4 % (0.0-10.0) 03/25/17 08:17 Eos % (Auto) 5.3 % (0.0-4.0) H 03/25/17 08:17 Baso % (Auto) 0.4 % (0.0-2.0) 03/25/17 08:17 Neut # 3.1 K/uL (1.8-7.0) 03/25/17 08:17 Lymph # 2.6 K/uL (1.0-4.3) 03/25/17 08:17 [place] # 0.6 K/uL (0.0-0.8) 03/25/17 08:17 Eos # 0.3 K/uL (0.0-0.7) 03/25/17 08:17 Baso # 0.0 K/uL (0.0-0.2) 03/25/17 08:17 APTT 34 SECONDS (21-34) 03/24/17 06:32 Sodium 135 mmol/L (132-148) 03/25/17 08:17 Potassium 4.4 mmol/L (3.6-5.2) 03/25/17 08:17 Chloride 99 mmol/L (98-107) 03/25/17 08:17 Carbon Dioxide 30 mmol/L (22-30) 03/25/17 08:17 Anion Gap 11 (10-20) 03/25/17 08:17 BUN 18 mg/dL (7-17) H 03/25/17 08:17 Creatinine 0.9 mg/dL (0.7-1.2) 03/25/17 08:17 Est GFR ( Amer) > 60 03/25/17 08:17 Est GFR (Non-Af Amer) > 60 03/25/17 08:17 Random Glucose 88 mg/dL (65-105) 03/25/17 08:17 Hemoglobin A1c 5.8 % (4.2-6.5) 03/25/17 08:17 Calcium 7.6 mg/dl (8.6-10.4) L 03/25/17 08:17 Total Bilirubin 0.5 mg/dL (0.2-1.3) 03/25/17 08:17 AST 28 U/L (14-36) 03/25/17 08:17 ALT 39 U/L (9-52) 03/25/17 08:17 Alkaline Phosphatase 76 U/L (38-126) 03/25/17 08:17 Total Creatine Kinase 121 U/L (30-135) 03/23/17 11:35 CK-MB (Mass) 1.18 ng/mL (0.0-3.38) 03/23/17 11:35 Troponin I < 0.0120 ng/mL (0.00-0.120) 03/23/17 11:35 Total Protein 6.8 g/dL (6.3-8.3) 03/25/17 08:17 Albumin 3.7 g/dL (3.5-5.0) 03/25/17 08:17 Globulin 3.1 gm/dL (2.2-3.9) 03/25/17 08:17 Albumin/Globulin Ratio 1.2 (1.0-2.1) 03/25/17 08:17 Triglycerides 137 mg/dL (0-149) D 03/25/17 08:17 Cholesterol 196 mg/dL (0-199) 03/25/17 08:17 LDL Cholesterol Direct 124 mg/dL (0-129) 03/25/17 08:17 HDL Cholesterol 35 mg/dL (30-70) 03/25/17 08:17 TSH 3rd Generation 4.05 mIU/L (0.46-4.68) 03/23/17 07:17 Urine Color Yellow (YELLOW) 03/24/17 12:06 Urine Clarity Clear (Clear) 03/24/17 12:06 Urine pH 5.0 (5.0-8.0) 03/24/17 12:06 Ur Specific [place] 1.013 (1.003-1.030) 03/24/17 12:06 Urine Protein Negative mg/dL (NEGATIVE) 03/24/17 12:06 Urine Glucose (UA) Normal mg/dL (Normal) 03/24/17 12:06 Urine Ketones Negative mg/dL (NEGATIVE) 03/24/17 12:06 Urine Blood Negative (NEGATIVE) 03/24/17 12:06 Urine Nitrate Negative (NEGATIVE) 03/24/17 12:06 Urine Bilirubin Negative (NEGATIVE) 03/24/17 12:06 Urine Urobilinogen Normal mg/dL (0.2-1.0) 03/24/17 12:06 Ur Leukocyte Esterase Neg Dami/uL (Negative) 03/24/17 12:06 Urine WBC (Auto) 1 /hpf (0-5) 03/24/17 12:06 Ur Squamous Epith Cells 1 /hpf (0-5) 03/24/17 12:06 - Hospital Course Hospital Course: 61 year old female with PMHx HTN, HLD, IGT who presents complaining of non- radiating mid sternal chest pain and dizziness for half an hour prior to arrival to the hospital. Patient states that the pain is constant and described as a pressure. The dizziness is worsened with turning her head. Dizziness is described as the room is spinning. Patient also complains of nausea and vomiting. Neuro was consulted on the case. Relevant Studies below. CARMENZA's were Negative x 3. Prelim ECHO showed normal E.F. Hospital course complicated by increased urinary frequency. UA and Urine cultures were ordered which were both NEGATIVE. Patient's symptoms have resolved. She is stable for discharge by neurology and medicine team. Per neurology patient should go home with MgOx for Migraine Prophylaxis and take NSAIDS at the beginning of a migraine attack. Patient also advised to follow up with her PMD within 1-2 weeks. She is agreeable to plan and medications. CT head (03/22) unremarkable Brain MRI (03/24/17): Bilateral scattered small foci of abnormal T2/FLAIR signal intensity in the periventricular and subcortical white matter. Given patient age , findings likely represent small vessel ischemic disease however, additional differential considerations include infectious/inflammatory process, demyelinating disease, or migraines. Head and Neck MRA (03/25/16): Normal. - Date & Time of H&P Date of H&P: 03/25/17 Time of H&P: 15:00 Discharge Exam - Head Exam Head Exam: ATRAUMATIC, NORMAL INSPECTION - Additional Findings Additional findings: - Constitutional Appears: Well, No Acute Distress - Head Exam Head Exam: ATRAUMATIC, NORMAL INSPECTION - Eye Exam Eye Exam: EOMI, Normal appearance - ENT Exam ENT Exam: Mucous Membranes Moist - Neck Exam Neck Exam: Full ROM - Respiratory Exam Respiratory Exam: Clear to Ausculation Bilateral, NORMAL BREATHING PATTERN. absent: Rales, Rhonchi, Wheezes - Cardiovascular Exam Cardiovascular Exam: REGULAR RHYTHM, +S1, +S2 - GI/Abdominal Exam GI & Abdominal Exam: Soft, Normal Bowel Sounds, absent: Firm, Guarding, Rigid, Tenderness - Extremities Exam Extremities Exam: Normal Inspection. absent: Calf Tenderness - Back Exam Back Exam: NORMAL INSPECTION - Neurological Exam Neurological Exam: Alert, Awake, CN II-XII Intact, Oriented x3 - Psychiatric Exam Psychiatric exam: Normal Affect, Normal Mood - Skin Skin Exam: Dry, Normal Color, Warm Discharge Plan - Discharge Medications Prescriptions: Levothyroxine [Synthroid] 25 mcg PO DAILY #14 tab Losartan [Cozaar] 50 mg PO DAILY #14 tab Magnesium Oxide [Magox 400] 400 mg PO BID #28 tablet - Follow Up Plan Condition: STABLE Disposition: HOME/ ROUTINE Instructions: Chest Pain (DC), Vertigo (DC) Additional Instructions: Please follow up with your primary medical physician You may take Magnesium Oxide 400mg by mouth twice a day to prevent migraines You may take NSAID's by mouth when you feel a headache beginning. Por favor darren un seguimiento con wiley mdico de cabecera. Puede hima Magnesium Oxide 400 mg por va oral dos veces al da para prevenir migraas. Puede hima NSAID por va oral cuando sienta que comienza un dolor de jason. Referrals: Yohana [facility] [Outside] <Marce Gonzalez V - Last Filed: 03/25/17 18:35> Provider - Provider Date of Admission: 03/23/17 00:43 Attending physician: Marce Gonzalez, Hospital Course - Lab Results Lab Results: Micro Results 03/24/17 12:54 Urine,Clean Catch Urine Culture - Final No Growth (<1,000 CFU/ML) Most Recent Lab Values WBC 6.6 K/uL (4.8-10.8) 03/25/17 08:17 RBC 4.71 Mil/uL (3.80-5.20) 03/25/17 08:17 Hgb 13.9 g/dL (11.0-16.0) 03/25/17 08:17 Hct 41.5 % (34.0-47.0) 03/25/17 08:17 MCV 88.3 fL (81.0-99.0) 03/25/17 08:17 MCH 29.6 pg (27.0-31.0) 03/25/17 08:17 MCHC 33.5 g/dL (33.0-37.0) 03/25/17 08:17 RDW 13.5 % (11.5-14.5) 03/25/17 08:17 Plt Count 208 K/uL (130-400) 03/25/17 08:17 MPV 8.8 fL (7.2-11.7) 03/25/17 08:17 Neut % (Auto) 46.7 % (50.0-75.0) L 03/25/17 08:17 Lymph % (Auto) 39.2 % (20.0-40.0) 03/25/17 08:17 [place] % (Auto) 8.4 % (0.0-10.0) 03/25/17 08:17 Eos % (Auto) 5.3 % (0.0-4.0) H 03/25/17 08:17 Baso % (Auto) 0.4 % (0.0-2.0) 03/25/17 08:17 Neut # 3.1 K/uL (1.8-7.0) 03/25/17 08:17 Lymph # 2.6 K/uL (1.0-4.3) 03/25/17 08:17 [place] # 0.6 K/uL (0.0-0.8) 03/25/17 08:17 Eos # 0.3 K/uL (0.0-0.7) 03/25/17 08:17 Baso # 0.0 K/uL (0.0-0.2) 03/25/17 08:17 APTT 34 SECONDS (21-34) 03/24/17 06:32 Sodium 135 mmol/L (132-148) 03/25/17 08:17 Potassium 4.4 mmol/L (3.6-5.2) 03/25/17 08:17 Chloride 99 mmol/L (98-107) 03/25/17 08:17 Carbon Dioxide 30 mmol/L (22-30) 03/25/17 08:17 Anion Gap 11 (10-20) 03/25/17 08:17 BUN 18 mg/dL (7-17) H 03/25/17 08:17 Creatinine 0.9 mg/dL (0.7-1.2) 03/25/17 08:17 Est GFR ( Amer) > 60 03/25/17 08:17 Est GFR (Non-Af Amer) > 60 03/25/17 08:17 Random Glucose 88 mg/dL (65-105) 03/25/17 08:17 Hemoglobin A1c 5.8 % (4.2-6.5) 03/25/17 08:17 Calcium 7.6 mg/dl (8.6-10.4) L 03/25/17 08:17 Total Bilirubin 0.5 mg/dL (0.2-1.3) 03/25/17 08:17 AST 28 U/L (14-36) 03/25/17 08:17 ALT 39 U/L (9-52) 03/25/17 08:17 Alkaline Phosphatase 76 U/L (38-126) 03/25/17 08:17 Total Creatine Kinase 121 U/L (30-135) 03/23/17 11:35 CK-MB (Mass) 1.18 ng/mL (0.0-3.38) 03/23/17 11:35 Troponin I < 0.0120 ng/mL (0.00-0.120) 03/23/17 11:35 Total Protein 6.8 g/dL (6.3-8.3) 03/25/17 08:17 Albumin 3.7 g/dL (3.5-5.0) 03/25/17 08:17 Globulin 3.1 gm/dL (2.2-3.9) 03/25/17 08:17 Albumin/Globulin Ratio 1.2 (1.0-2.1) 03/25/17 08:17 Triglycerides 137 mg/dL (0-149) D 03/25/17 08:17 Cholesterol 196 mg/dL (0-199) 03/25/17 08:17 LDL Cholesterol Direct 124 mg/dL (0-129) 03/25/17 08:17 HDL Cholesterol 35 mg/dL (30-70) 03/25/17 08:17 TSH 3rd Generation 4.05 mIU/L (0.46-4.68) 03/23/17 07:17 Urine Color Yellow (YELLOW) 03/24/17 12:06 Urine Clarity Clear (Clear) 03/24/17 12:06 Urine pH 5.0 (5.0-8.0) 03/24/17 12:06 Ur Specific [place] 1.013 (1.003-1.030) 03/24/17 12:06 Urine Protein Negative mg/dL (NEGATIVE) 03/24/17 12:06 Urine Glucose (UA) Normal mg/dL (Normal) 03/24/17 12:06 Urine Ketones Negative mg/dL (NEGATIVE) 03/24/17 12:06 Urine Blood Negative (NEGATIVE) 03/24/17 12:06 Urine Nitrate Negative (NEGATIVE) 03/24/17 12:06 Urine Bilirubin Negative (NEGATIVE) 03/24/17 12:06 Urine Urobilinogen Normal mg/dL (0.2-1.0) 03/24/17 12:06 Ur Leukocyte Esterase Neg Dami/uL (Negative) 03/24/17 12:06 Urine WBC (Auto) 1 /hpf (0-5) 03/24/17 12:06 Ur Squamous Epith Cells 1 /hpf (0-5) 03/24/17 12:06 Attending/Attestation - Attestation I have personally seen and examined this patient.: Yes I have fully participated in the care of the patient.: Yes I have reviewed all pertinent clinical information, including history, physical exam and plan: Yes
[2017-03-25 15:21] VITALS: BP 115/77; PULSE 72; O2SAT 99
[2017-03-25] MEDS ORDERED: Magnesium Oxide 400 mg Tab UD PO SCH (18:15)
--- NOTE | 2017-03-26 14:54 | CARD ---
APPROVED REPORT EKG Measurement Heart [id number] CT 136P17 [id number] <Conclusion> Sinus bradycardia Possible Inferior infarct, age undetermined Abnormal ECG
== END 2017-03-25 19:45 | disposition home or self-care (01) ==
LOC: C.ER 22:25 → C.6T 03-23 00:43
PROVIDERS: ADMIT Hospitalist; ATTEND Hospitalist
DX: G43.109 Migraine with aura, not intractable, without status migrainosus (principal); E78.00 Pure hypercholesterolemia, unspecified; I10 Essential (primary) hypertension; Z79.899 Other long term (current) drug therapy; E03.9 Hypothyroidism, unspecified; R07.9 Chest pain, unspecified; Z23 Encounter for immunization
CPT/HCPCS: 36415; 70450; 70544; 70547; 70551; 71010; 80053; 80061; 81001; 82550; 82553; 83036; 84443; 84484; 85025; 85730; 87086; 90471; 90674; 90732; 93306; 96374; 97116; 97161; 97165; 97530; 99285; G0378; G8978; G8979; G8980; G8987; G8988; G8989; J1644; J2060

== ENCOUNTER 2018-06-26 09:00 | Emergency (ER) | payer MEDICAID, OTHER ==
[2018-06-26 09:41] LABS: BASO % 0.6 % (0.0-2.0); EOS # 0.3 K/uL (0.0-0.7); EOS % 4.5 % (0.0-4.0); HEMOGLOBIN 12.7 g/dL (11.0-16.0); LYMPH # 2.2 K/uL (1.0-4.3); LYMPH % 35.9 % (20.0-40.0); MEAN CELL VOLUME 89.9 fL (81.0-99.0); MEAN CORPUSCULAR HEMOGLOBIN 30.1 pg (27.0-31.0); MEAN CORPUSCULAR HGB CONC 33.5 g/dL (33.0-37.0); MEAN PLATELET VOLUME 9.5 fL (7.2-11.7); MONO # 0.5 K/uL (0.0-0.8); MONO % 8.1 % (0.0-10.0); NEUT # 3.1 K/uL (1.8-7.0); NEUT % 50.9 % (50.0-75.0); NRBC % 0.1 % (0.0-2.0); RBC 4.21 Mil/uL (3.80-5.20); RED CELL DISTRIBUTION WIDTH 13.1 % (11.5-14.5); WHITE BLOOD COUNT 6.1 K/uL (4.8-10.8)
[2018-06-26 09:43] LABS: SQUAMOUS EPITHIAL < 1 /hpf (0-5); URINE BILIRUBIN NEGATIVE (NEGATIVE); URINE BLOOD NEGATIVE (NEGATIVE); URINE CLARITY Clear (Clear); URINE COLOR Straw (YELLOW); URINE GLUCOSE (UA) NORMAL (Normal); URINE LEUKOCYTE ESTERASE NEG Leu/uL (Negative); URINE PROTEIN NEGATIVE (NEGATIVE); URINE UROBILINOGEN NORMAL mg/dL (0.2-1.0)
[2018-06-26 09:52] LABS: ALB/GLOB RATIO 1.3 (1.0-2.1); ALBUMIN 4.1 g/dL (3.5-5.0); ALT/SGPT 27 U/L (9-52); AST/SGOT 27 U/L (14-36); BLOOD UREA NITROGEN 16 mg/dL (7-17); GFR NON-AFRICAN AMERICAN > 60; LIPASE 106 U/L (23-300)
--- NOTE | 2018-06-26 10:05 | C.PDOC ---
History Of Present Illness 62 year old female with PMHx of hyperlipidemia, HTN, and hyperthyroidism presents for evaluation of new onset of pain radiating from the back around the waist to the umbilicus on the left side that started 1 day ago. The pt reports the pain is constant, admits she has not taken medication(s) for current symptoms. Tolerates PO. Denies fever, chills, nausea, vomiting, constipation, diarrhea, urinary symptoms, and any other associated symptoms. Time Seen by Provider: 06/26/18 09:19 Chief Complaint (Nursing): Abdominal Pain History Per: Patient History/Exam Limitations: no limitations Onset/Duration Of Symptoms: Days (x1) Current Symptoms Are (Timing): Still Present Location Of Pain/Discomfort: Other (radiating from the back around the waist to the umbilicus on the left side.) Radiation Of Pain To:: Back Associated Symptoms: denies: Nausea, Vomiting, Diarrhea, Constipation, Urinary Symptoms Recent travel outside of the [place]: No Past Medical History Reviewed: Historical Data, Nursing Documentation, Vital Signs Vital Signs: Last Vital Signs Temp 98.3 F 06/26/18 09:09 Pulse 67 06/26/18 09:09 Resp 16 06/26/18 09:09 BP 115/73 06/26/18 09:09 Pulse Ox 98 06/26/18 09:09 - Medical History PMH: HTN, Hypercholesterolemia, Hypothyroidism Denies: Chronic Kidney Disease Family History: States: Unknown Family Hx - Social History Hx Alcohol Use: Yes Hx Substance Use: No - Immunization History Hx Tetanus Toxoid Vaccination: No Hx Influenza Vaccination: No Hx Pneumococcal Vaccination: No Review Of Systems Except As Marked, All Systems Reviewed And Found Negative. Constitutional: Negative for: Fever, Chills Gastrointestinal: Positive for: Abdominal Pain (radiating from the back around the waist to the umbilicus on the left side.). Negative for: Nausea, Vomiting, Diarrhea, Constipation Genitourinary: Negative for: Dysuria, Frequency Physical Exam - Physical Exam Appears: Well, Non-toxic, No Acute Distress Skin: Warm, Dry Head: Atraumatic, Normacephalic Eye(s): bilateral: Normal Inspection Oral Mucosa: Moist Neck: Normal ROM, Supple Chest: Symmetrical, No Deformity Cardiovascular: Rhythm Regular, No Murmur Respiratory: Normal Breath Sounds, No Rales, No Rhonchi, No Wheezing Gastrointestinal/Abdominal: Soft, Tenderness (to the LUQ.), Other ((+) obese. ) Back: CVA Tenderness (mild costovertebral tenderness of left side of flank.) Extremity: Bilateral: Atraumatic, Normal Color And Temperature, Normal ROM Neurological/Psych: Oriented x3, Normal Speech, Normal Cognition ED Course And Treatment - Laboratory Results Result Diagrams: 06/26/18 09:33 06/26/18 09:33 Lab Results: Total Bilirubin 0.2 mg/dL (0.2-1.3) 06/26/18 09:33 AST 27 U/L (14-36) 06/26/18 09:33 ALT 27 U/L (9-52) 06/26/18 09:33 Alkaline Phosphatase 94 U/L (38-126) 06/26/18 09:33 Total Protein 7.2 g/dL (6.3-8.3) 06/26/18 09:33 Albumin 4.1 g/dL (3.5-5.0) 06/26/18 09:33 Globulin 3.1 gm/dL (2.2-3.9) 06/26/18 09:33 Albumin/Globulin Ratio 1.3 (1.0-2.1) 06/26/18 09:33 Lipase 106 U/L (23-300) 06/26/18 09:33 Urine Color Straw (YELLOW) 06/26/18 09:33 Urine Clarity Clear (Clear) 06/26/18 09:33 Urine pH 6.0 (5.0-8.0) 06/26/18 09:33 Ur Specific [place] 1.004 (1.003-1.030) 06/26/18 09:33 Urine Protein Negative mg/dL (NEGATIVE) 06/26/18 09:33 Urine Glucose (UA) Normal mg/dL (Normal) 06/26/18 09:33 Urine Ketones Negative mg/dL (NEGATIVE) 06/26/18 09:33 Urine Blood Negative (NEGATIVE) 06/26/18 09:33 Urine Nitrate Negative (NEGATIVE) 06/26/18 09:33 Urine Bilirubin Negative (NEGATIVE) 06/26/18 09:33 Urine Urobilinogen Normal mg/dL (0.2-1.0) 06/26/18 09:33 Ur Leukocyte Esterase Neg Dami/uL (Negative) 06/26/18 09:33 Urine WBC (Auto) < 1 /hpf (0-5) 06/26/18 09:33 Urine RBC (Auto) < 1 /hpf (0-3) 06/26/18 09:33 Ur Squamous Epith Cells < 1 /hpf (0-5) 06/26/18 09:33 O2 Sat by Pulse Oximetry: 98 (RA) Pulse Ox Interpretation: Normal Medical Decision Making Medical Decision Making: Differential: renal colic, possible obstruction, possible zoster Initial plan: -Motrin -Tylenol Progress/Update: Pt had CT with unremarkable results, showing no diverticulitis, obstructions, or stones. Pt states feeling better but symptoms are still present to the left area mostly. Discharged with possible diagnosis of zoster and will treat preemptively. Disposition Counseled Patient/Family Regarding: Studies Performed, Need For Followup, Rx Given - Disposition Referrals: Yulissa Hutton [Staff Provider] - Disposition: HOME/ ROUTINE Disposition Time: 13:30 Condition: GOOD Additional Instructions: No hay un diagnstico seguro para wiley dolor. Todas las pruebas que realizamos en la selam de emergencia fueron normales. Es probable que wiley dolor se deba a la c [place]lebrilla. [place] el medicamento que le recetaron y darren un seguimiento con wiley mdico. Prescriptions: Ibuprofen [Motrin] 600 mg PO TID #15 tab Prednisone [Deltasone] 60 mg PO DAILY #15 tablet Valacyclovir HCl [Valtrex] 1 gm PO QID #28 tablet Instructions: [place] Forms: [employer] (Swedish) - POA Present On Arrival: None - Clinical Impression Clinical Impression: Flank pain, Zoster - Scribe Statement The provider has reviewed the documentation as recorded by the Scribe (Génesis Bagley) Provider Attestation: All medical record entries made by the Scribe were at my direction and personally dictated by me. I have reviewed the chart and agree that the record accurately reflects my personal performance of the history, physical exam, medical decision making, and the department course for this patient. I have also personally directed, reviewed, and agree with the discharge instructions and disposition.
[2018-06-26 11:39] VITALS: BP 108/63; PULSE 50; RESP 18; TEMP 98.5
--- NOTE | 2018-06-26 12:53 | CT ---
Date of service: 06/26/2018 PROCEDURE: CT Abdomen and Pelvis without intravenous contrast HISTORY: left flank pain COMPARISON: None. TECHNIQUE: Axial and reformatted coronal and sagittal CT images of the abdomen and pelvis were obtained without IV or oral contrast administration.. Contrast dose: 0 Radiation dose: Total exam DLP = 1019.14 mGy-cm. This CT exam was performed using one or more of the following dose reduction techniques: Automated exposure control, adjustment of the mA and/or kV according to patient size, and/or use of iterative reconstruction technique. FINDINGS: LOWER THORAX: Small opacity at the left lower lobe likely atelectasis or scar tissue. The possibility of pneumonia is less likely. LIVER: Unremarkable. No gross lesion or ductal dilatation. GALLBLADDER AND BILE DUCTS: Unremarkable. PANCREAS: Unremarkable. No gross lesion or ductal dilatation. SPLEEN: Unremarkable. ADRENALS: Unremarkable. No mass. KIDNEYS AND URETERS: No evidence of obstructing renal calculi. There is a 3.4 centimeters cyst in the mid to upper pole left kidney. No evidence of hydronephrosis or hydroureter. VASCULATURE: Unremarkable. No aortic aneurysm. No aortic atherosclerotic calcification or mural plaque present. BOWEL: Colonic diverticulosis are noted without definite evidence of diverticulitis. No evidence of high-grade bowel obstruction. APPENDIX: Unremarkable. Normal appendix. PERITONEUM: Unremarkable. No free fluid. No free air. LYMPH NODES: Unremarkable. No enlarged lymph nodes. BLADDER: Unremarkable. REPRODUCTIVE: Heterogeneous enlarged uterus contains foci of calcification likely represent calcified fibroids. BONES: No acute fracture. OTHER FINDINGS: None. IMPRESSION: No evidence of renal calculi or hydronephrosis. 3.4 centimeters cyst at the left kidney. Descending and sigmoid colon diverticulosis without evidence of diverticulitis. Fibroid uterus.
[2018-06-26 13:26] VITALS: O2SAT 98
--- NOTE | 2018-06-26 13:37 | RAD ---
Date of service: 06/26/2018 PROCEDURE: Radiographs of the chest and abdomen (obstructive series) HISTORY: abd pain COMPARISON: No prior. TECHNIQUE: AP radiograph of the chest, with upright and supine radiographs of the abdomen. 3 views obtained. FINDINGS: CHEST: Lungs: Clear. Cardiovascular: Normal size heart. No pulmonary vascular congestion. No aortic atherosclerotic calcification present Pleura: No pleural fluid. No pneumothorax. Other findings: None. ABDOMEN AND PELVIS: Bowel: Unremarkable bowel gas pattern. No evidence of mechanical obstruction. Free air: None. Bones: Unremarkable. Other findings: None. IMPRESSION: Mild constipation, otherwise unremarkable radiographs of chest and abdomen. No evidence of mechanical bowel obstruction.
== END 2018-06-26 13:55 | disposition home or self-care (01) ==
LOC: C.ER 09:00
DX: B02.9 Zoster without complications (principal); R10.9 Unspecified abdominal pain